=== PATIENT | female | born 1990 | race Caucasian/White ===

== ENCOUNTER 2019-07-16 05:15 | Inpatient (IN) | payer BC ==
[2019-07-16] MEDS ORDERED: Sodium Chloride 0.9% 10 ML Syringe FLUSH PRN (05:23)
[2019-07-16] MEDS ORDERED: Citric Acid/Sodium Citrate Solution 30 ML Cup PO ONE (05:23)
[2019-07-16] MEDS ORDERED: Sodium Chloride 0.9% 2.5 ML Syringe FLUSH PRN (05:23)
[2019-07-16] MEDS ORDERED: Sodium Chloride 0.9% 10 ML SDV IV PRN (05:23)
[2019-07-16] MEDS ORDERED: ceFAZolin 2 GM in Premix Bag 1 BAG IV ONE (05:23)
[2019-07-16] MEDS ORDERED: Oxytocin/0.9 % Sodium Chloride 30 UNIT/500 ML BAG IV SCH (05:30)
[2019-07-16] MEDS: Lactated Ringers 1,000 ML IV SCH ×4 (06:10→17:43)
[2019-07-16] MEDS ORDERED: Ondansetron 4 MG/2 ML SDV ONE (07:10)
[2019-07-16] MEDS ORDERED: Oxytocin/0.9 % Sodium Chloride 30 UNIT/500 ML BAG ONE (07:10)
--- NOTE | 2019-07-16 07:34 | PCM.PREANE ---
Preanesthetic Assessment - Anesthesia/Transfusion/Family Hx Anesthesia History: Prior Anesthesia Without Reaction Family History of Anesthesia Reaction: No Transfusion History: No Prior Transfusion(s) - Review of Systems General: No Symptoms Pulmonary: No Symptoms Cardiovascular: No Symptoms Gastrointestinal: No Symptoms Neurological: No Symptoms Other: Reports: None - Physical Assessment NPO Status Date: 07/16/19 NPO Status Time: 00:00 Height: 5 ft 11 in Weight: 99.79 kg ASA Class: 2 Mental Status: Alert & Oriented x3 Airway Class: Mallampati = 2 Dentition: Reports: Normal Dentition Thyro-Mental Finger Breadths: 3 Mouth Opening Finger Breadths: 3 ROM/Head Extension: Full Lungs: Clear to Auscultation, Normal Respiratory Effort Cardiovascular: Regular Rate, Regular Rhythm - Lab Values: Laboratory Last Values WBC 8.16 K/uL (4.0-11.0) 07/16/19 05:48 RBC 3.63 M/uL (4.30-5.90) L 07/16/19 05:48 Hgb 9.6 g/dL (12.0-16.0) L 07/16/19 05:48 Hct 29.5 % (36.0-46.0) L 07/16/19 05:48 MCV 81.3 fL (80.0-98.0) 07/16/19 05:48 MCH 26.4 pg (27.0-32.0) L 07/16/19 05:48 MCHC 32.5 g/dL (31.0-37.0) 07/16/19 05:48 RDW Std Deviation 40.8 fl (28.0-62.0) 07/16/19 05:48 RDW Coeff of Flora 14 % (11.0-15.0) 07/16/19 05:48 Plt Count 191 K/uL (150-400) 07/16/19 05:48 MPV 11.30 fL (7.40-12.00) 07/16/19 05:48 Nucleated RBC % 0.0 /100WBC 07/16/19 05:48 Nucleated RBCs # 0 K/uL 07/16/19 05:48 Blood Type A POSITIVE 07/16/19 05:48 Antibody Screen NEGATIVE 07/16/19 05:48 - Allergies Allergies/Adverse Reactions: Allergies Allergy/AdvReac Type Severity Reaction Status Date / Time adhesive tape Allergy Blisters Verified 07/12/19 10:59 green pepper Allergy Hives Verified 07/12/19 10:59 paprika Allergy Blisters Verified 07/12/19 10:59 pineapple Allergy Hives Verified 07/12/19 10:59 venom-honey bee Allergy Hives Verified 07/12/19 10:59 [bee venom (honey bee)] - Blood Blood Available: No - Anesthesia Plan Pre-Op Medication Ordered: Antacids - Acknowledgements Anesthesia Type Planned: Spinal Alternatives and Risks of Anesthesia Discussed w Pt/Guardian: Yes Pt/Guardian Understands and Agrees with Anesthesia Plan: Yes PreAnesthesia Questionnaire - Past Health History Medical/Surgical History: Denies Medical/Surgical History HEENT History: Reports: Allergic Rhinitis Cardiovascular History: Reports: None Respiratory History: Reports: Asthma Gastrointestinal History: Reports: GERD Genitourinary History: Reports: None [employer]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: Musculoskeletal History: Reports: Fracture Other Musculoskeletal History: hx fx wrists Neurological History: Reports: None Psychiatric History: Reports: Anxiety, Depression Endocrine/Metabolic History: Reports: None Hematologic History: Reports: None Immunologic History: Reports: None Oncologic (Cancer) History: Reports: None Dermatologic History: Reports: Eczema - Past Surgical History Head Surgeries/Procedures: Reports: None HEENT Surgical History: Reports: Tonsillectomy Cardiovascular Surgical History: Reports: None Respiratory Surgical History: Reports: None GI Surgical History: Reports: None Female Surgical History: Reports: Section, Oophorectomy, Other (See Below) Other Female Surgeries/Procedures: hx laparotomy for ovarian cyst removal and oophorectomy Endocrine Surgical History: Reports: None Neurological Surgical History: Reports: None Musculoskeletal Surgical History: Reports: None Oncologic Surgical History: Reports: None Dermatological Surgical History: Reports: None - SUBSTANCE USE Smoking Status *Q: Never Smoker - HOME MEDS Home Medications: Home Meds Acetaminophen [Tylenol] 2 tab PO ASDIRECTED PRN 07/12/19 [History] FLUoxetine HCl [Prozac] 20 mg PO DAILY 07/12/19 [History] Fluticasone/Vilanterol [Breo Ellipta 100-25 MCG Inhalation Kit] 1 inhalation INH DAILY 07/12/19 [History] Levalbuterol Tartrate [Xopenex Hfa] 1 puff INH ASDIRECTED PRN 07/12/19 [History] Omeprazole Magnesium [Prilosec Otc] 20 mg PO DAILY 07/12/19 [History] Ondansetron HCl [Zofran] 4 mg PO ASDIRECTED PRN 07/12/19 [History] PNV95/Ferrous Fumarate/FA [ Vitamin Tablet] 1 tab PO DAILY 07/12/19 [ History] diphenhydrAMINE [Benadryl] 1 tab PO ASDIRECTED PRN 07/12/19 [History] - CURRENT (IN HOUSE) MEDS Current Meds: Current Medications Lactated Ringer's (Ringers, Lactated) 1,000 mls @ 500 mls/hr IV BOLUS AN[facility] Last Admin: 07/16/19 07:20 Dose: 999 mls/hr Oxytocin/Sodium Chloride (Oxytocin 30 Unit/500 Ml-Ns) 30 unit in 500 mls @ 250 mls/hr IV TITRATE AN[facility] Sodium Chloride (Saline Flush) 10 ml FLUSH ASDIRECTED PRN PRN Reason: Keep Vein Open Sodium Chloride (Saline Flush) 2.5 ml FLUSH ASDIRECTED PRN PRN Reason: Keep Vein Open Sodium Chloride (Normal Saline) 10 ml IV ASDIRECTED PRN PRN Reason: IV Use Discontinued Medications Citric Acid/Sodium Citrate (Bicitra Solution) 30 ml PO ONETIME ONE Stop: 07/16/19 05:24 Cefazolin Sodium/Dextrose 2 gm (/ Premix) 50 mls @ 100 mls/hr IV ONETIME ONE Stop: 07/16/19 05:52 Oxytocin/Sodium Chloride (Oxytocin 30 Unit/500 Ml-Ns) Confirm Administered Dose 30 unit in 500 mls @ as directed .ROUTE .STK-MED ONE Stop: 07/16/19 07:11 Ondansetron HCl (Zofran) Confirm Administered Dose 4 mg .ROUTE .STK-MED ONE Stop: 07/16/19 07:11
[2019-07-16] MEDS ORDERED: Morphine PF 10 MG/10 ML SDV ONE (07:37)
[2019-07-16] MEDS ORDERED: Citric Acid/Sodium Citrate Solution 30 ML Cup ONE (07:42)
--- NOTE | 2019-07-16 07:47 | PCM.SN ---
- Free Text/Narrative Note: pt interviewed and examined. repeat , 3.5 yr ago. prior spinal. PHM: asthma- inactive through this , relative anemia PLAN: spinal with duramorph.
[2019-07-16] MEDS ORDERED: Acetaminophen/oxyCODONE 325-5 MG Tab PO PRN ×2 (07:49→08:52)
[2019-07-16] MEDS ORDERED: fentaNYL 100 MCG/2 ML SDV IVPUSH PRN (07:49)
[2019-07-16] MEDS ORDERED: ceFAZolin/Dextrose,Iso-Osmotic 2 GM/50 ML Duplex Bag IV ONE (08:00)
[2019-07-16] MEDS ORDERED: Phenylephrine 1% 10 MG/ML SDV ONE (08:21)
[2019-07-16] MEDS ORDERED: Ondansetron 4 MG/2 ML SDV IVPUSH PRN (08:52)
[2019-07-16] MEDS ORDERED: Lanolin 100% Cream 7 GM Tube TOP PRN (08:52)
[2019-07-16] MEDS ORDERED: Aluminum Hydroxide/Magnesium Hydroxide/Simethicone Susp 30 ML Cup PO PRN (08:52)
[2019-07-16] MEDS ORDERED: Bisacodyl 10 MG Supp RECTAL PRN (08:52)
--- NOTE | 2019-07-16 09:03 | PCM.OPNOTE ---
- General Post-Op/Procedure Note Date of Surgery/Procedure: 07/16/19 Operative Procedure(s): Repeat LTCS Findings: Viable female APGARs 8, 9 weight 3270 gm, delivery intact placenta with 3V cord Pre Op Diagnosis: 39 week IUP. Previous c section, desires repeat Post-Op Diagnosis: Same Anesthesia Technique: Spinal Primary Surgeon: Silvana Pitts Fluid Replacement, Intraop: 2,400 EBL in mLs: 600 Complications: none known Condition: Good Free Text/Narrative:: Dictation [id number]
[2019-07-16] MEDS: Ketorolac 30 MG/ML SDV IVPUSH SCH ×3 (09:17→21:04)
[2019-07-16] MEDS: Docusate Sodium 100 MG Cap PO SCH ×2 (09:47→21:06)
[2019-07-16] MEDS: Nalbuphine 10 MG/1 ML Vial IVPUSH PRN ×3 (09:54→19:22)
--- NOTE | 2019-07-16 10:55 | PCM.POSTAN ---
POST ANESTHESIA ASSESSMENT - MENTAL STATUS Mental Status: Alert, Oriented - VITAL SIGNS Vital Signs: Last Vital Signs Temp 97.7 F 07/16/19 08:55 Pulse 82 07/16/19 09:30 Resp 11 L 07/16/19 09:30 BP 120/84 07/16/19 09:30 Pulse Ox 94 L 07/16/19 09:30 - RESPIRATORY Respiratory Status: Respiratory Rate WNL, Airway Patent, O2 Saturation Stable - CARDIOVASCULAR CV Status: Pulse Rate WNL, Blood Pressure Stable - GASTROINTESTINAL GI Status: No Symptoms - POST OP HYDRATION Hydration Status: Adequate & Stable
--- NOTE | 2019-07-16 12:04 | OR ---
SURGEON: Silvana Pitts M.D. DATE OF PROCEDURE: 07/16/2019 PREOPERATIVE DIAGNOSES: 1. A 39-week intrauterine . 2. Previous section, desires repeat. POSTOPERATIVE DIAGNOSES: 1. A 39-week intrauterine . 2. Previous section, desires repeat. PROCEDURE: Repeat low-transverse section. PRIMARY SURGEON: Silvana Pitts MD. PREDATORY ANIMAL HUNTER: Giselle Knowles. ANESTHESIA: Spinal. ESTIMATED BLOOD LOSS: 600 mL. FLUIDS: 2400 mL of crystalloid. COMPLICATIONS: None known. FINDINGS: Viable female. scores 8 at one minute and 9 at seven minutes. Weight of 3270 g. Delivery, intact placenta, three-vessel cord. DISPOSITION: Infant to nursery, mom in LDRP. PROCEDURE DETAILS: Le is a 28-year-old, G2, P1, at 39 weeks' gestational age who presents this morning for scheduled repeat delivery. Risks of the procedure have been discussed. Proper consent obtained. The patient was taken to the operating room where she underwent a spinal anesthetic. Was placed in dorsal supine position with leftward tilt. SCDs to lower extremities. Maza to gravity. Was prepped and draped in the usual sterile fashion. A time-out was performed. Anesthesia was tested, found to be adequate. Previous Pfannenstiel scar was now excised. Subcutaneous tissue was incised down to the level of rectus fascia. Rectus fascia was incised in the midline and lateralized on either side. The superior aspect of fascia was tented upward, dissected sharply and bluntly from underlying muscles. Similar aspect was performed with the inferior aspect of fascia. Rectus muscle in midline. Peritoneum was entered and rectus muscle and peritoneum were now lateralized bluntly. Uterine position and position palpated. Self-retaining retractor was gently placed. Uterovesical reflection was visualized. Bladder flap was created sharply and bluntly. Bladder was mobilized away from the lower uterine segment. Low-transverse hysterotomy was now performed. Uterine cavity was entered with blunt-ended scalpel. Amniotomy was performed. Hysterotomy was lateralized bluntly. Head was delivered from the pelvis. Fundal pressure was applied. The head was delivered followed by anterior shoulder, posterior shoulder, and the remainder of the body without difficulty. The 's oropharynx and nares were bulb suctioned. Cord was clamped x2 and cut. Infant was handed off to attending nursery staff. Cord arterial, cord venous, cord blood sampling obtained. The placenta was now delivered. Uterine cavity was cleared of all clot and debris. Hysterotomy was repaired using 0 Vicryl in continuous running locked fashion followed by re-imbricating layer. The posterior aspect of the uterus was inspected. No defects or hematomas were found be forming. Region was well irrigated, suction dried. Uterus returned to abdominal cavity. Colonic gutters were cleared of all clot and debris, well irrigated, suction dried. Area of oozing along the midline of the incision was now reapproximated using 0 Vicryl in a [id number] fashion. Self-retaining tractor gently removed. Bladder blade was placed. Hysterotomy was again inspected and found to be hemostatic. Bladder blade was removed. Rectus muscle and peritoneum were now reapproximated using 0 Vicryl in inverted mattress suture technique. Anterior aspect of the muscle and posterior aspect of the fascia were closely inspected. Any areas of oozing were cauterized. The rectus fascia was reapproximated using 0 Vicryl beginning laterally on either side and meeting in the midline. Subcutaneous tissues were well irrigated, suction dried. Any areas of oozing were cauterized. Deep subcutaneous tissue was reapproximated using 3-0 plain in continuous running fashion followed by inspection of any areas of oozing what would have been cauterized. The skin was reapproximated using 3-0 Vicryl on a Kolby needle in subcuticular fashion followed by half-inch Steri-Strips and Mastisol. Sponge, instrument, and needle count was correct x2. The patient has tolerated the procedure well overall. She will go to PACU in stable condition, to nursery. MAURICIO / TAMMIE /[id number]
[2019-07-16] MEDS: Simethicone 80 MG Tab.Chew PO SCH ×2 (12:24→17:48)
[2019-07-16] MEDS: diphenhydrAMINE 50 MG/ML SDV IVPUSH PRN (23:04)
[2019-07-17] MEDS: Ketorolac 30 MG/ML SDV IVPUSH SCH ×2 (02:56→08:26)
--- NOTE | 2019-07-17 06:25 | PCM.PNPP ---
- General Info Date of Service: 07/17/19 Functional Status: Reports: Pain Controlled, Tolerating Diet, Ambulating - Review of Systems General: Reports: No Symptoms HEENT: Reports: No Symptoms Pulmonary: Reports: No Symptoms Cardiovascular: Reports: No Symptoms Gastrointestinal: Reports: No Symptoms Genitourinary: Reports: No Symptoms Musculoskeletal: Reports: No Symptoms Skin: Reports: No Symptoms Neurological: Reports: No Symptoms Psychiatric: Reports: No Symptoms - General Info Date of Service: 07/17/19 - Patient Data Vital Signs - Most Recent: Last Vital Signs Temp 36.3 C 07/17/19 03:38 Pulse 84 07/17/19 03:38 Resp 18 07/17/19 03:38 BP 126/81 07/17/19 03:38 Pulse Ox 99 07/17/19 03:38 Weight - Most Recent: 99.79 kg I&O - Last 24 Hours: Intake & Output 07/16/19 07/16/19 07/17/19 14:59 22:59 06:59 Intake Total 5400 Output Total 395 432 2773 Balance 4900 -400 -2500 Lab Results - Last 24 Hours: Laboratory Results - last 24 hr 07/16/19 07/16/19 Range/Units 05:48 08:13 Cord ABG pH 7.294 (7.18-7.38) Cord ABG Base Excess -4 (-10--2) Cord VBG pH 7.346 (7.25-7.45) Cord VBG Base Excess -6 (-10--2) Blood Type A POSITIVE Antibody Screen NEGATIVE Med Orders - Current: Current Medications Al Hydroxide/Mg Hydroxide (Mag-Al Plus) 30 ml PO Q8H PRN PRN Reason: Heartburn Bisacodyl (Dulcolax) 10 mg RECTAL ONETIME PRN PRN Reason: Constipation Diphenhydramine HCl (Benadryl) 25 mg IVPUSH Q6H PRN PRN Reason: Itching or Nausea Last Admin: 07/16/19 23:04 Dose: 25 mg Docusate Sodium (Colace) 100 mg PO BID ANIVAL Last Admin: 07/16/19 21:06 Dose: 100 mg Emollient Ointment (Lansinoh Hpa) 0 gm TOP ASDIRECTED PRN PRN Reason: Sore Nipples Fentanyl (Sublimaze) 50 mcg IVPUSH Q5M PRN PRN Reason: Pain (severe 7-10) Stop: 07/17/19 07:50 Lactated Ringer's (Ringers, Lactated) 1,000 mls @ 500 mls/hr IV BOLUS [facility] Last Admin: 07/16/19 07:20 Dose: 999 mls/hr Oxytocin/Sodium Chloride (Oxytocin 30 Unit/500 Ml-Ns) 30 unit in 500 mls @ 250 mls/hr IV TITRATE [facility] Lactated Ringer's (Ringers, Lactated) 1,000 mls @ 125 mls/hr IV ASDIRECTED [facility] Last Admin: 07/16/19 17:43 Dose: 125 mls/hr Ibuprofen (Motrin) 800 mg PO Q8H PRN PRN Reason: mild pain or fever Ketorolac Tromethamine (Toradol) 30 mg IVPUSH Q6H [facility] Stop: 07/17/19 09:01 Last Admin: 07/17/19 02:56 Dose: 30 mg Nalbuphine HCl (Nubain) 2.5 mg IVPUSH Q3H PRN PRN Reason: Pruritis Stop: 07/17/19 07:52 Last Admin: 07/16/19 19:22 Dose: 2.5 mg Ondansetron HCl (Zofran) 4 mg IVPUSH Q4H PRN PRN Reason: Nausea/Vomiting Last Admin: 07/16/19 15:57 Dose: 4 mg Oxycodone/Acetaminophen (Percocet 325-5 Mg) 1 tab PO ONETIME PRN PRN Reason: Pain (moderate 4-6) Oxycodone/Acetaminophen (Percocet 325-5 Mg) 1 tab PO Q4H PRN PRN Reason: Pain (moderate 4-6) Oxycodone/Acetaminophen (Percocet 325-5 Mg) 2 tab PO Q4H PRN PRN Reason: Pain (moderate 4-6) Simethicone (Simethicone) 160 mg PO QID [facility] Last Admin: 07/16/19 17:48 Dose: 160 mg Sodium Chloride (Saline Flush) 10 ml FLUSH ASDIRECTED PRN PRN Reason: Keep Vein Open Sodium Chloride (Saline Flush) 2.5 ml FLUSH ASDIRECTED PRN PRN Reason: Keep Vein Open Sodium Chloride (Normal Saline) 10 ml IV ASDIRECTED PRN PRN Reason: IV Use Discontinued Medications Cefazolin Sodium/Dextrose (Ancef) Confirm Administered Dose 2 gm IV .STK-MED ONE Stop: 07/16/19 08:01 Citric Acid/Sodium Citrate (Bicitra Solution) 30 ml PO ONETIME ONE Stop: 07/16/19 05:24 Last Admin: 07/16/19 07:43 Dose: 30 ml Citric Acid/Sodium Citrate (Bicitra Solution) Confirm Administered Dose 30 ml .ROUTE .STK-MED ONE Stop: 07/16/19 07:43 Last Admin: 07/16/19 13:09 Dose: Not Given Cefazolin Sodium/Dextrose 2 gm (/ Premix) 50 mls @ 100 mls/hr IV ONETIME ONE Stop: 07/16/19 05:52 Last Admin: 07/16/19 13:09 Dose: Not Given Oxytocin/Sodium Chloride (Oxytocin 30 Unit/500 Ml-Ns) Confirm Administered Dose 30 unit in 500 mls @ as directed .ROUTE .STK-MED ONE Stop: 07/16/19 07:11 Morphine Sulfate (Duramorph Pf) Confirm Administered Dose 10 mg .ROUTE .STK-MED ONE Stop: 07/16/19 07:38 Ondansetron HCl (Zofran) Confirm Administered Dose 4 mg .ROUTE .STK-MED ONE Stop: 07/16/19 07:11 Phenylephrine HCl (Antony-Synephrine) Confirm Administered Dose 10 mg .ROUTE .STK- MED ONE Stop: 07/16/19 08:22 - Interaction Disposition, : in Room with Family Interaction: Holding Infant Feeding: Breastfed ; Nursed Well Support Person: - Recovery Exam Fundal Tone: Firm Fundal Level: At Umbilicus Fundal Placement: Midline Lochia Amount: Scant Lochia Color: Rubra/Red Perineum Description: Intact, Minimal Bruising/Swelling Episiotomy/Laceration: None Bladder Status: Indwelling Catheter in Place Urinary Elimination: Indwelling Catheter - Exam General: Alert, Oriented HEENT: Pupils Equal Neck: Supple Lungs: Clear to Auscultation, Normal Respiratory Effort Cardiovascular: Regular Rate, Regular Rhythm GI/Abdominal Exam: Normal Bowel Sounds, Soft, Non-Tender, No Organomegaly, No Distention Extremities: Normal Inspection, Non-Tender, No Pedal Edema Skin: Warm, Dry, Intact Wound/Incisions: Dressing Dry and Intact Neurological: No New Focal Deficit Psy/Mental Status: Alert, Normal Affect, Normal Mood - Problem List & Annotations (1) Delivery of second by section using transverse incision of lower segment of uterus SNOMED Code(s): 965126315, [id number] Code(s): O82 - ENCOUNTER FOR DELIVERY WITHOUT INDICATION Status: Acute Current Visit: Yes - Problem List Review Problem List Initiated/Reviewed/Updated: Yes - Assessment Assessment:: POD#1 after repeat , stable, minimal lochia, tolerating regular diet. Anemic preop, hgb pending today. - Plan Plan:: Continue postop care
[2019-07-17] MEDS: Docusate Sodium 100 MG Cap PO SCH ×2 (08:05→20:15)
[2019-07-17] MEDS: Simethicone 80 MG Tab.Chew PO SCH ×2 (11:01→18:15)
--- NOTE | 2019-07-17 11:54 | PCM48HPAN ---
Post Anesthesia Note - EVALUATION WITHIN 48HRS OF ANESTHETIC Vital Signs in Normal Range: Yes Patient Participated in Evaluation: Yes Respiratory Function Stable: Yes Airway Patent: Yes Cardiovascular Function Stable: Yes Hydration Status Stable: Yes Pain Control Satisfactory: Yes Nausea and Vomiting Control Satisfactory: Yes Mental Status Recovered: Yes Vital Signs: Last Vital Signs Temp 36.7 C 07/17/19 07:03 Pulse 82 07/17/19 07:03 Resp 17 07/17/19 07:03 BP 126/76 07/17/19 07:03 Pulse Ox 96 07/17/19 07:03
[2019-07-17] MEDS: diphenhydrAMINE 50 MG/ML SDV IVPUSH PRN (13:07)
[2019-07-17] MEDS ORDERED: diphenhydrAMINE 50 MG Cap PO PRN (13:12)
[2019-07-17] MEDS ORDERED: diphenhydrAMINE 50 MG Cap ONE (13:18)
[2019-07-17] MEDS: Ibuprofen 800 MG Tab PO PRN (14:28)
[2019-07-17] MEDS: Acetaminophen/oxyCODONE 325-5 MG Tab PO PRN ×2 (16:12→20:14)
[2019-07-18] MEDS: Simethicone 80 MG Tab.Chew PO SCH ×3 (00:07→12:14)
[2019-07-18] MEDS: Ibuprofen 800 MG Tab PO PRN ×2 (00:07→10:32)
[2019-07-18] MEDS: Acetaminophen/oxyCODONE 325-5 MG Tab PO PRN ×3 (03:17→12:14)
[2019-07-18 07:47] VITALS: BP 123/80; PULSE 82
[2019-07-18] MEDS: Docusate Sodium 100 MG Cap PO SCH (07:59)
--- NOTE | 2019-07-18 10:08 | PCM.PNPP ---
- General Info Date of Service: 07/18/19 Functional Status: Reports: Tolerating Diet, Ambulating, Urinating. Denies: Pain Controlled (had coughing episode last night, feeling quite a bit of incisional pain today and cramping with .) - Review of Systems General: Reports: No Symptoms HEENT: Reports: No Symptoms Pulmonary: Reports: Cough (last night due to water she was drinking went into larynx) Cardiovascular: Reports: No Symptoms Gastrointestinal: Reports: No Symptoms Genitourinary: Reports: No Symptoms Musculoskeletal: Reports: No Symptoms Skin: Reports: No Symptoms Neurological: Reports: No Symptoms Psychiatric: Reports: Depression (increaseing prozac after discharge. ) - Patient Data Vital Signs - Most Recent: Last Vital Signs Temp 36.6 C 07/18/19 07:17 Pulse 82 07/18/19 07:17 Resp 17 07/18/19 07:17 BP 123/80 07/18/19 07:17 Pulse Ox 97 07/18/19 07:17 Weight - Most Recent: 99.79 kg Med Orders - Current: Current Medications Al Hydroxide/Mg Hydroxide (Mag-Al Plus) 30 ml PO Q8H PRN PRN Reason: Heartburn Bisacodyl (Dulcolax) 10 mg RECTAL ONETIME PRN PRN Reason: Constipation Diphenhydramine HCl (Benadryl) 25 mg IVPUSH Q6H PRN PRN Reason: Itching or Nausea Last Admin: 07/16/19 23:04 Dose: 25 mg Diphenhydramine HCl (Benadryl) 50 mg PO Q6H PRN PRN Reason: Itching Last Admin: 07/17/19 13:21 Dose: 50 mg Docusate Sodium (Colace) 100 mg PO BID ANIVAL Last Admin: 07/18/19 07:59 Dose: 100 mg Emollient Ointment (Lansinoh Hpa) 0 gm TOP ASDIRECTED PRN PRN Reason: Sore Nipples Lactated Ringer's (Ringers, Lactated) 1,000 mls @ 500 mls/hr IV BOLUS [facility] Last Admin: 07/16/19 07:20 Dose: 999 mls/hr Oxytocin/Sodium Chloride (Oxytocin 30 Unit/500 Ml-Ns) 30 unit in 500 mls @ 250 mls/hr IV TITRATE ANIVAL Lactated Ringer's (Ringers, Lactated) 1,000 mls @ 125 mls/hr IV ASDIRECTED ANIVAL Last Admin: 07/16/19 17:43 Dose: 125 mls/hr Ibuprofen (Motrin) 800 mg PO Q8H PRN PRN Reason: mild pain or fever Last Admin: 07/18/19 00:07 Dose: 800 mg Ondansetron HCl (Zofran) 4 mg IVPUSH Q4H PRN PRN Reason: Nausea/Vomiting Last Admin: 07/16/19 15:57 Dose: 4 mg Oxycodone/Acetaminophen (Percocet 325-5 Mg) 1 tab PO ONETIME PRN PRN Reason: Pain (moderate 4-6) Oxycodone/Acetaminophen (Percocet 325-5 Mg) 1 tab PO Q4H PRN PRN Reason: Pain (moderate 4-6) Last Admin: 07/17/19 11:01 Dose: 1 tab Oxycodone/Acetaminophen (Percocet 325-5 Mg) 2 tab PO Q4H PRN PRN Reason: Pain (moderate 4-6) Last Admin: 07/18/19 07:58 Dose: 2 tab Simethicone (Simethicone) 160 mg PO QID ANIVAL Last Admin: 07/18/19 06:24 Dose: 160 mg Sodium Chloride (Saline Flush) 10 ml FLUSH ASDIRECTED PRN PRN Reason: Keep Vein Open Sodium Chloride (Saline Flush) 2.5 ml FLUSH ASDIRECTED PRN PRN Reason: Keep Vein Open Sodium Chloride (Normal Saline) 10 ml IV ASDIRECTED PRN PRN Reason: IV Use Discontinued Medications Cefazolin Sodium/Dextrose (Ancef) Confirm Administered Dose 2 gm IV .STK-MED ONE Stop: 07/16/19 08:01 Citric Acid/Sodium Citrate (Bicitra Solution) 30 ml PO ONETIME ONE Stop: 07/16/19 05:24 Last Admin: 07/16/19 07:43 Dose: 30 ml Citric Acid/Sodium Citrate (Bicitra Solution) Confirm Administered Dose 30 ml .ROUTE .STK-MED ONE Stop: 07/16/19 07:43 Last Admin: 07/16/19 13:09 Dose: Not Given Diphenhydramine HCl (Benadryl) Confirm Administered Dose 50 mg .ROUTE .STK-MED ONE Stop: 07/17/19 13:19 Last Admin: 07/17/19 13:42 Dose: Not Given Fentanyl (Sublimaze) 50 mcg IVPUSH Q5M PRN PRN Reason: Pain (severe 7-10) Stop: 07/17/19 07:50 Cefazolin Sodium/Dextrose 2 gm (/ Premix) 50 mls @ 100 mls/hr IV ONETIME ONE Stop: 07/16/19 05:52 Last Admin: 07/16/19 13:09 Dose: Not Given Oxytocin/Sodium Chloride (Oxytocin 30 Unit/500 Ml-Ns) Confirm Administered Dose 30 unit in 500 mls @ as directed .ROUTE .STK-MED ONE Stop: 07/16/19 07:11 Ketorolac Tromethamine (Toradol) 30 mg IVPUSH Q6H ANIVAL Stop: 07/17/19 09:01 Last Admin: 07/17/19 08:26 Dose: 30 mg Morphine Sulfate (Duramorph Pf) Confirm Administered Dose 10 mg .ROUTE .STK-MED ONE Stop: 07/16/19 07:38 Nalbuphine HCl (Nubain) 2.5 mg IVPUSH Q3H PRN PRN Reason: Pruritis Stop: 07/17/19 07:52 Last Admin: 07/16/19 19:22 Dose: 2.5 mg Ondansetron HCl (Zofran) Confirm Administered Dose 4 mg .ROUTE .STK-MED ONE Stop: 07/16/19 07:11 Phenylephrine HCl (Antony-Synephrine) Confirm Administered Dose 10 mg .ROUTE .STK- MED ONE Stop: 07/16/19 08:22 - Infant Interaction Disposition, : in Room with Family Interaction: Holding Infant Feeding: Breastfed Infant; Nursed Well Support Person: - Recovery Exam Fundal Tone: Firm Fundal Level: 2 Fingerbreadths Below Umbilicus Fundal Placement: Midline Lochia Amount: Scant Lochia Color: Rubra/Red Perineum Description: Intact, Minimal Bruising/Swelling Episiotomy/Laceration: None Bladder Status: Voiding Urinary Elimination: Other (see below) Other Urinary Elimination, : due to void - Exam General: Alert, Oriented HEENT: Pupils Equal Neck: Supple Lungs: Clear to Auscultation, Normal Respiratory Effort Cardiovascular: Regular Rate, Regular Rhythm GI/Abdominal Exam: Normal Bowel Sounds, Soft, Non-Tender, No Organomegaly, No Distention Extremities: Normal Inspection, Non-Tender, No Pedal Edema Skin: Warm, Dry, Intact Wound/Incisions: Healing Well Neurological: No New Focal Deficit Psy/Mental Status: Alert, Normal Affect, Normal Mood - Problem List & Annotations (1) Delivery of second by section using transverse incision of lower segment of uterus SNOMED Code(s): 222294413, [id number] Code(s): O82 - ENCOUNTER FOR DELIVERY WITHOUT INDICATION Status: Acute Current Visit: Yes - Problem List Review Problem List Initiated/Reviewed/Updated: Yes - My Orders Last 24 Hours: My Active Orders 07/17/19 13:12 diphenhydrAMINE [Benadryl] 50 mg PO Q6H PRN 07/18/19 09:25 Ready for Discharge [RC] PER UNIT ROUTINE - Assessment Assessment:: POD#2 after repeat , stable, minimal lochia, tolerating regular diet. postop hemoglobin was stable anemic at admission. Noting more pain today than yesterday. - Plan Plan:: Due to anemia, she will continue on with iron for a least 1 month postop, then if she would like to switch to another vitamin she may. discharge instructions were reviewed. Offered to have her stay for pain management for one more day if she desires.
== END 2019-07-18 13:10 | disposition home or self-care (01) | DRG 540 ==
LOC: MW.OB 05:15
PROVIDERS: ADMIT Obstetrics & Gynecology; ATTEND Obstetrics & Gynecology
PROC: 10D00Z1 Extraction of Products of Conception, Low, Open Approach (ICD-10-PCS; principal; 2019-07-16)
DX: O99.02 Anemia complicating childbirth (principal); D64.9 Anemia, unspecified; Z3A.39 39 weeks gestation of pregnancy; Z37.0 Single live birth
CPT/HCPCS: 36415; 59025; 82803; 85014; 85018; 85027; 86850; 86900; 86901; A9270-GY; J0690; J1200; J1885; J2270; J2300; J2370; J2405; J2590; J7120

== ENCOUNTER 2021-12-07 09:16 | Emergency (ER) | payer BC ==
[2021-12-07] MEDS ORDERED: Sodium Chloride 0.9% 1,000 ML IV ONE (09:35)
[2021-12-07] MEDS ORDERED: Prochlorperazine 10 MG/2 ML SDV IVPUSH ONE (09:41)
[2021-12-07 10:17] LABS: BLOOD UREA NITROGEN,BUN 19 mg/dL (7.0-18.0); CARBON DIOXIDE,CO2 23.3 mmol/L (21.0-32.0); CHLORIDE,CL 101 mmol/L (98-107); GLUCOSE RANDOM 107 mg/dL (74-106); LIPASE 50 U/L (73-393); POTASSIUM,K 3.4 mmol/L (3.5-5.1); SODIUM,NA 134 mmol/L (136-145)
[2021-12-07 11:29] VITALS: BP 121/72; PULSE 136
== END 2021-12-07 11:29 | disposition home or self-care (01) ==
LOC: MW.ED 09:16
DX: K52.9 Noninfective gastroenteritis and colitis, unspecified (principal); J45.909 Unspecified asthma, uncomplicated; K21.9 Gastro-esophageal reflux disease without esophagitis; Z91.048 Other nonmedicinal substance allergy status; Z91.030 Bee allergy status; Z91.018 Allergy to other foods
CPT/HCPCS: 36415; 80053; 81001; 83690; 84703; 85025; 96374; 99284; J0780; J7030; 99283